=== PATIENT | male | born 1990 | race Hispanic/Latino ===

== ENCOUNTER 2018-12-29 14:51 | Inpatient (IN) | payer SELFPAY ==
[~2018-12-29] VITALS: Ht 157.5 cm; Wt 63.0 kg
[2018-12-29] MEDS ORDERED: ONDANSETRON HCL 4 MG/2 ML VIAL ONE (14:55)
[2018-12-29] MEDS ORDERED: MORPHINE SULFATE 4 MG/1ML SYG ONE (14:56)
[2018-12-29 15:11] LABS: BASOPHILS % (AUTO) 0.5 % (0.0-5.0); EOSINOPHILS % (AUTO) 1.7 % (0.0-8.0); LYMPHOCYTES % (AUTO) 49.1 % (21.0-51.0); MEAN CORPUSCULAR HEMOGLOBIN 29.1 pg (27.0-33.0); MEAN CORPUSCULAR VOLUME 83.2 fL (79-99); MONOCYTES % (AUTO) 6.8 % (3.0-13.0); NEUTROPHILS % (AUTO) 41.9 % (40.0-77.0); PLATELET COUNT (AUTO) 296 K/uL (130-400); RED BLOOD CELL COUNT(AUTO) 5.05 MIL/uL (4.50-6.20); WHITE BLOOD COUNT (AUTO) 9.3 K/uL (4.8-10.8)
[2018-12-29 15:22] LABS: CREATININE 1.2 mg/dL (0.5-1.5); POTASSIUM 3.4 mmol/L (3.5-5.1)
[2018-12-29 15:23] LABS: INR 0.98 (0.85-1.15); PARTIAL THROMBOPLASTIN TIME 24.3 SEC (26.3-35.5); PROTHROMBIN TIME 10.3 SEC (9.6-11.6)
[2018-12-29] MEDS ORDERED: CEFAZOLIN SODIUM 1 GM VIAL ONE (15:43)
[2018-12-29] MEDS ORDERED: TETANUS/DIPHTHERIA TOXOID [ADULT] 0.5 ML VIAL IM ONE (15:43)
[2018-12-29] MEDS ORDERED: SODIUM CHLORIDE 0.9% 100 ML IV ONE (15:45)
[2018-12-29] MEDS ORDERED: MORPHINE SULFATE 2 MG/ML 1ML SYG ONE (15:56)
[2018-12-29] MEDS ORDERED: ACETAMINOPHEN-CODEINE 300/30MG TAB PO PRN (17:00)
[2018-12-29] MEDS ORDERED: ACETAMINOPHEN-CODEINE 300/30MG TAB ONE (17:05)
[2018-12-29 18:08] VITALS: BP 133/75
[2018-12-29 19:55] VITALS: BP 145/99
[2018-12-29 20:31] LABS: AMPHET/METH SCREEN,URINE NEGATIVE (NEGATIVE); BARBITURATE SCREEN, URINE NEGATIVE (NEGATIVE); BENZODIAZEPINES SCREEN,URINE NEGATIVE (NEGATIVE); CANNABINOID SCREEN,URINE NEGATIVE (NEGATIVE); COCAINE SCREEN,URINE NEGATIVE (NEGATIVE); OPIATE SCREEN,URINE POSITIVE (NEGATIVE); PHENCYCLIDINE SCREEN,URINE NEGATIVE (NEGATIVE)
[2018-12-29] MEDS: CEFAZOLIN SODIUM 1 GM VIAL IVP SCH (21:43)
[2018-12-29 23:52] VITALS: BP 148/97
[2018-12-29] MEDS: MORPHINE SULFATE 2 MG/ML 1ML SYG IVP PRN (23:52)
[2018-12-30] VITALS (26 sets, daily range): BP systolic 107–144; BP diastolic 61–94
[2018-12-30] MEDS: MORPHINE SULFATE 2 MG/ML 1ML SYG IVP PRN ×3 (04:40→11:09)
[2018-12-30] MEDS: CEFAZOLIN SODIUM 1 GM VIAL IVP SCH ×3 (05:39→21:50)
--- NOTE | 2018-12-30 16:00 | NUR ---
pttaken to OR report given to miguel or nurse pt denies sob or chest pain family at bed side
[2018-12-30] MEDS ORDERED: DEXAMETHASONE SOD PHOSPHATE 10MG/ML 1ML VIAL ONE (16:25)
[2018-12-30] MEDS ORDERED: LIDOCAINE PF 2% 5ML ABBOJECT ONE (16:25)
[2018-12-30] MEDS ORDERED: FENTANYL CITRATE PF 50 MCG/1 ML 2ML VIAL ONE (16:26)
[2018-12-30] MEDS ORDERED: MIDAZOLAM HCL 1 MG/ML 2ML VIAL ONE (16:26)
[2018-12-30] MEDS ORDERED: ONDANSETRON HCL 4 MG/2 ML VIAL ONE (16:26)
[2018-12-30] MEDS ORDERED: PROPOFOL 10 MG/ML 20ML VIAL IV ONE (16:26)
[2018-12-30] MEDS ORDERED: ESMOLOL HCL 10 MG/ML 10 ML VIAL ONE (16:49)
[2018-12-30] MEDS ORDERED: FENTANYL CITRATE PF 50 MCG/1 ML 5ML AMP IV ONE (16:58)
[2018-12-30] MEDS ORDERED: CEFAZOLIN SODIUM 1 GM VIAL ONE (17:02)
[2018-12-30] MEDS ORDERED: GLYCOPYRROLATE 1 MG/5 ML SYRINGE ONE (18:44)
[2018-12-30] MEDS ORDERED: NEOSTIGMINE 5MG/5ML SYR IV ONE (18:44)
--- NOTE | 2018-12-30 19:01 | NUR ---
RT HAND DRESSING CDI. FINGERS VISIBLE, GOOD CAP REFILL, FINGERS WAS TO TACTILE AND GOOD RADIAL PULSE. Addendum: 12/30/18 at 2019 by ELEANOR STONER RN RN Amended: Links added.
--- NOTE | 2018-12-30 19:53 | NUR ---
PT REMAINS STABLE. RT HAND FINGERS WITH GOOD CAP REFILL, AND WARM TO TACTILE. GOOD RADIAL PULSE. PT TRANSFERRED TO HIS RM. FAMILY IN THE RM. Addendum: 12/30/18 at 2020 by ELEANOR STONER RN RN Amended: Links added.
--- NOTE | 2018-12-30 19:58 | NUR ---
S/P ORIF PROCEDURE BACK FROM RECOVERY , AWAKE ALERT ORIENTED X3,V/S IN PROGRESS, BREATHING EASY ,DENIES ACUTE DISCOMFORT AT THIS TIME Addendum: 12/30/18 at 2016 by NICKO WHEELER RN RN Amended: Links added.
--- NOTE | 2018-12-30 20:05 | NUR ---
STATUS UPDATE PT IN BED HOB ELEVATED RIGHT WITH SLING IN PLACE ,HAND ELEVATED ABOVE HEART LEVEL WITH PILLOWS, ML WRAP DRI INTACT , GOOD SENSATION X5 FINGERS ,GOOD CAP REFILL ABLE TO MOVE WITH PAIN ,WARM TO TOUCH Addendum: 12/30/18 at 2027 by NICKO WHEELER RN RN Amended: Links added.
[2018-12-31] MEDS: ACETAMINOPHEN-CODEINE 300/30MG TAB PO PRN ×2 (03:15→18:46)
[2018-12-31 03:16] VITALS: BP 116/75
[2018-12-31] MEDS: CEFAZOLIN SODIUM 1 GM VIAL IVP SCH ×3 (05:19→22:18)
[2018-12-31 07:30] VITALS: BP 123/73
[2018-12-31 11:00] VITALS: BP 122/60
[2018-12-31 16:00] VITALS: BP 124/82
--- NOTE | 2018-12-31 16:50 | NUR ---
D/C PLAN CM spoke to pt regarding d/c planning. Pt lives with parents. States parents can assist in care if needed. CM discussed wound care. Father at bedside states they will be assisting with wound care when discharge. CM provided community resources packet. Plan to home. CM to f/u. Addendum: 12/31/18 at 1708 by RUDDY MCCORD CM Amended: Links added.
[2018-12-31 19:35] VITALS: BP 132/76
[2018-12-31 23:38] VITALS: BP 118/79
[2019-01-01 03:45] VITALS: BP 118/74
[2019-01-01] MEDS: CEFAZOLIN SODIUM 1 GM VIAL IVP SCH (06:07)
[2019-01-01 08:00] VITALS: BP 116/80
--- NOTE | 2019-01-01 08:44 | NUR ---
PT D/C W TEACH BACK SUCCESSFULLY PT EDUCATE ON FU ON WEDNESDAY AND ANTIBIOTIC THERAPY REFER TO D/C SUMMARY PT DENIES SOB OR CHEST PAIN SX INCISION CLEAN AND DRY PT DENIES ANY PAIN
== END 2019-01-01 08:58 | disposition home or self-care (01) | DRG 513 ==
LOC: EDH 14:51 → EDHIP 14:52 → 4BH 18:05
PROVIDERS: ADMIT Surgery Plastic and Reconstructive Surgery; ATTEND Surgery Plastic and Reconstructive Surgery
PROC: 0PSP04Z Reposition Right Metacarpal with Internal Fixation Device, Open Approach (ICD-10-PCS; principal; 2018-12-30 16:40)
PROC: 0PH Upper Bones, Insertion (ICD-10-PCS; 2018-12-30 16:40)
PROC: 0PBP0ZZ Excision of Right Metacarpal, Open Approach (ICD-10-PCS; 2018-12-30 16:40)
DX: S62.606A Fracture of unspecified phalanx of right little finger, initial encounter for closed fracture (principal); S66.921A Laceration of unspecified muscle, fascia and tendon at wrist and hand level, right hand, initial encounter; S62.308A Unspecified fracture of other metacarpal bone, initial encounter for closed fracture; S62.602A Fracture of unspecified phalanx of right middle finger, initial encounter for closed fracture; S62.604A Fracture of unspecified phalanx of right ring finger, initial encounter for closed fracture; X58.XXXA Exposure to other specified factors, initial encounter; Y93.89 Activity, other specified; Y92.89 Other specified places as the place of occurrence of the external cause; Y99.8 Other external cause status
CPT/HCPCS: 36415; 73130; 80048; 80305; 85025; 85610; 85730; 90714; G0378; J0690; J1100; J2001; J2250; J2270; J2405; J2704; J2710; J3010; J3490